=== PATIENT | female | born 1960 | race Caucasian/White ===

== ENCOUNTER 2022-06-19 09:51 | Day surgery (SDC) | payer OTHER ==
[~2022-06-19 09:51] MED LIST: Norco 5-325 Ta1 EACH PO
== END 2022-06-24 23:00 | disposition home or self-care (01) ==
LOC: MOI US 09:51
DX: C50.512 Malignant neoplasm of lower-outer quadrant of left female breast (principal)
CPT/HCPCS: 19285; 77065; A4648

== ENCOUNTER 2022-07-08 09:06 | Day surgery (SDC) | payer OTHER ==
[~2022-07-08] VITALS: Ht 172.7 cm; Wt 79.2 kg
[2022-07-08] VITALS (15 sets, daily range): BP systolic 125–152; BP diastolic 64–103
[~2022-07-08 09:06] MED LIST changes: +AVEIDA 1%-1% GE30 GM TOP; +CLOBETASOL EMOL15 G1 TOP; +DUPIXENT300 MG/21 SC; +Estradiol0.5 MG PO; +PROG100 PO; +Protopic100 G1 TOP; +Triamcinolone A15 G3
--- NOTE | 2022-07-08 14:50 | NUR ---
INTO STEP-S/P LEFT PARTIAL MASTECTOMY. PT IS A&OX4. DENIES NAUSEA. TOLERATING ICE CHIPS AND SIPS OF WATER WITHOUT DIFFICULTY. BINDER TO CHEST-LEFT BREAST AND AXILLA DRESSING/GAUZE WITH 3 M TAPE-C/D/I. PT REPORTS 4/10 INCISIONAL PAIN. WILL OFFER CRACKERS AND THEN PO PAIN MEDS-SEE EMAR.
--- NOTE | 2022-07-08 15:50 | NUR ---
Discharge instructions reviewed with patient. Patient verbalizes understanding. Copy given to patient to take home. Patient up to Ambulate independently. Gait steady. Pt. discharged to home, out via wheelchair with Rx, belongings, and discharge instructions on hand.
== END 2022-07-08 15:50 | disposition home or self-care (01) ==
LOC: ORSCMMR 09:06 → NM 09:06
PROVIDERS: Surgery
PROC: 07B60ZZ Excision of Left Axillary Lymphatic, Open Approach (ICD-10-PCS; principal; 2022-07-08 09:30)
PROC: 0HBU0ZZ Excision of Left Breast, Open Approach (ICD-10-PCS; principal; 2022-07-08 09:30)
DX: C50.512 Malignant neoplasm of lower-outer quadrant of left female breast (principal); C50.812 Malignant neoplasm of overlapping sites of left female breast; Z17.0 Estrogen receptor positive status [ER+]; Z79.890 Hormone replacement therapy
CPT/HCPCS: 38792; 76098; 88307; 88329; 88342; A9270; A9520; J0690; J1100; J1885; J2250; J2405; J2704; J3010; J7120; Q9968

== ENCOUNTER 2024-07-06 14:59 | Emergency (ER) | payer OTHER, MEDICARE, BC ==
[~2024-07-06] VITALS: Ht 172.7 cm; Wt 77.1 kg
[2024-07-06 15:49] LABS: BASOPHILS ABSOLUTE AUTO 0.03 K/mm3 (0.00-0.23); BASOPHILS PERCENT AUTO 1 % (0-2); EOSINOPHILS ABSOLUTE AUTO 0.09 K/mm3 (0.00-0.68); EOSINOPHILS PERCENT AUTO 2 % (0-6); Hematocrit 40.9 % (33.0-51.0); Hemoglobin 14.4 g/dL (11.5-16.0); IMMATURE GRAN ABSOLUTE AUTO 0.03 K/mm3 (0.00-0.10); IMMATURE GRAN PERCENT AUTO 1 % (0-1); LYMPHOCYTES ABSOLUTE AUTO 1.17 K/mm3 (0.84-5.20); LYMPHOCYTES PERCENT AUTO 25 % (21-46); MONOCYTES ABSOLUTE AUTO 0.56 K/mm3 (0.16-1.47); MONOCYTES PERCENT AUTO 12 % (4-13); Mean Corpuscular HGB 34.6 pg (26.0-34.0); Mean Corpuscular HGB Conc 35.2 g/dL (31.5-36.5); Mean Corpuscular Volume 98 fL (80-100); Mean Platelet Volume 8.3 fL (9.1-12.4); NEUTROPHILS PERCENT AUTO 61 % (41-73); Platelet Count 226 K/mm3 (150-400); RDW Coefficient Variation 12.5 % (11.7-14.2); RDW Standard Deviation 45.4 fL (35.1-46.3); Red Blood Cell Count 4.16 M/mm3 (3.80-5.20); White Blood Cell Count 4.78 K/mm3 (4.00-11.30)
[2024-07-06 16:18] LABS: Albumin, Blood 4.1 g/dL (3.4-5.0); Albumin/Globulin Ratio 1.2 (0.8-1.8); Bilirubin, Total 0.6 mg/dL (0.1-1.0); Bun/Creatinine Ratio 28.7 (12.0-20.0); Calcium, Blood 9.3 mg/dL (8.5-10.1); Creatinine, Blood 0.7 mg/dL (0.40-1.00); Globulin, Blood 3.3 g/dL (2.2-4.0); Potassium, Blood 3.7 mmol/L (3.5-5.5); Total Protein, Blood 7.4 g/dL (6.4-8.2)
[2024-07-06 17:30] VITALS: BP 165/107
[2024-07-06] MEDS ORDERED: IBUP600 PO (17:34)
== END 2024-07-06 17:38 | disposition home or self-care (01) ==
LOC: ER 14:59
PROVIDERS: Student in an Organized Health Care Education/Training Program
DX: S02.2XXA Fracture of nasal bones, initial encounter for closed fracture (principal); S20.219A Contusion of unspecified front wall of thorax, initial encounter; V49.49XA Driver injured in collision with other motor vehicles in traffic accident, initial encounter; Z91.041 Radiographic dye allergy status; Z79.51 Long term (current) use of inhaled steroids
CPT/HCPCS: 70486; 80053; 85025; 93005; 93010; 99284-25

== ENCOUNTER 2024-07-18 15:14 | Emergency (ER) | payer OTHER, MEDICARE, BC ==
[~2024-07-18] VITALS: Ht 172.7 cm; Wt 77.1 kg
[~2024-07-18 15:14] MED LIST changes: +IBUP600 PO
[2024-07-18 15:50] VITALS: BP 161/111
== END 2024-07-19 17:15 | disposition home or self-care (01) ==
LOC: ER 15:14
DX: R07.89 Other chest pain (principal); Z91.041 Radiographic dye allergy status; V89.2XXA Person injured in unspecified motor-vehicle accident, traffic, initial encounter
CPT/HCPCS: 71046; 99283-25